=== PATIENT | male | born 1990 | race Caucasian/White ===

== ENCOUNTER 2023-06-06 14:43 | Observation (INO) ==
[2023-06-06 14:53] VITALS: BMI 34.0
--- NOTE | 2023-06-06 15:15 | DR.ABDMALE ---
HPI Time seen Time Seen by Provider: 06/06/23 15:15 PCP Primary Care Physician: [email or web address] Complaint Chief Complaint Doctors Comments: 33 y/o male presents for evaluation. Having upper abdominal pain over the past 2 weeks, was off and on, now steadily worsen ing. Located in the epigastric region, sharp and burning. Does not radiate. Worsens with drinking and eating. Has had some nausea with vomiting. Currently constipated for the past few days.. States his stools have been black at times.. Decreased p.o. intake. Denies taking a lot of aspirin products, [id number] nonsteroidals. Does not drink alcohol. Chief Complaint:: Pt c/o stomach pain, vomitting, can't sleep, "constantly hurting and burning", can't eat, can't sleep, anything he tries to drink stanley his stomach, indicates pain is epigastric and radiates to right. States his last BM was 3-4 days ago and he usually goes daily denies diarrhea presently, but did have a couple episodes a couple weeks ago. Denies urinary issues Self Treatment fo Chief Complaint: omeprazole "was working" but not helping anymore, radha, edwars COVID-19 Coronavirus risk:travel/contact w/high risk person: No Has patient experienced Coronavirus symptoms: No Source History provided by:: PATIENT Mode of arrival Mode of Arrival: Ambulatory Timing Onset of Chief Complaint: 05/23/23 PMH PMH Past Medical History: No Past Surgical History: No Surgical History: No History Family History History of Family Medical Conditions: Yes Family Medical History: [place] Social History Does patient currently use any type of tobacco product: Yes Have you used tobacco products in the last 12 months: Yes Type of Tobacco Use: Cigarettes Does any household member use tobacco: No Alcohol Use: Occasionally Do you use any recreational Drugs:: No Lives With: Spouse and Family Lives Where: Home Travel Risk Coronavirus risk:travel/contact w/high risk person: No Has patient experienced Coronavirus symptoms: No Infectious screening In the last 2 months have you had wt loss of >10#?: NO Have you had fever, night sweats or hemotysis?: No Have you traveled outside the country in the last 6 months?: No Isolation: Standard ROS Review of Systems Constitutional: Loss of Appetite Eyes: No Symptoms Reported ENTM: No Symptoms Reported Respiratoy: No Symptoms Reported Cardiovascular: No Symptoms Reported Gastrointestinal/Abdominal: See HPI Genitourinary: No Symptoms Reported Neurological: No Symptoms Reported Musculoskeletal: No Symptoms Reported Integumentary: No Symptoms Reported All Other Systems: Reviewed and Negative PE Vital Signs Vital Signs: Temp Pulse Resp BP Pulse Ox O2 Del Method 06/06/23 16:42 20 06/06/23 17:58 20 06/06/23 15:42 18 06/06/23 14:44 98.2 F 89 18 148/104 98 Room Air General General Appearance: Alert and In No Apparent Distress Eyes Eye exam: PERRL and EOMI ENT ENT Exam: Normal Oropharynx and Mucous Membranes Moist Neck Neck Exam: Normal Inspection and Full ROM Respiratory Respiratory Exam: Normal Lung Sounds Bilat; negative Accessory Muscle Use or Respiratory Distress Cardiovascular Cardiovascular Exam: Regular Rate, Normal Rhythm and Normal Heart Sounds Abdominal Exam Abdominal Exam: Normal Bowel Sounds, Soft and Tenderness (epigastric, RUQ/LUQ, no Alfonso's) Back Back Exam: Normal Inspection; negative (R) CVA Tenderness or (L) CVA Tenderness Extremeties Extremities Exam: Normal Inspection and Full ROM; negative Edema Neurologic Neurological Exam: Alert, Oriented X3 and CN II-XII Intact; negative Motor Sensory Deficit Skin Skin Exam: Warm and Dry COURSE Treatment Treatment: 33 y/o male with worsening epigastric pain over the past 2 weeks. Clinically with gastritis, PUD. W/u initiated. Pt given IV fluids, IV Protonix/Zofran. Given p.o. GI cocktail. 1744 - helped for a bit, pain/nausea returning. Given PO carafate, IV morphine/zofran. 1840 - no help, still with pain. Will admit for IV fluids, pain control, keep NPO after MN, and plan on EGD in AM. Discussed with Dr Portillo, accepts the admission. ROR Labs Reviewed Laboratory Results Reviewed?: Yes 06/06/23 15:37 06/06/23 15:37 Laboratory: WBC 9.2 X10^3/uL (3.6-10.0) 06/06/23 15:37 RBC 5.65 X10^6/uL (4.7-6.0) 06/06/23 15:37 Hgb 15.2 g/dL (13.5-18.0) 06/06/23 15:37 Hct 46.0 % (42.0-54.0) 06/06/23 15:37 MCV 81.4 fL (80.0-100.0) 06/06/23 15:37 MCH 26.9 pg (27.0-34.0) L 06/06/23 15:37 MCHC 33.0 g/dL (33.0-35.0) 06/06/23 15:37 RDW 13.5 % (11.6-16.5) 06/06/23 15:37 Plt Count 233 X10^3/uL (150.0-450.0) 06/06/23 15:37 MPV 10.4 fL (7.4-11.0) 06/06/23 15:37 Neut % (Auto) 62.3 % (42.0-75.0) 06/06/23 15:37 Lymph % (Auto) 25.2 % (21.0-51.0) 06/06/23 15:37 [place] % (Auto) 3.8 % (0.0-13.0) 06/06/23 15:37 Eos % (Auto) 8.2 % (0.9-2.9) H 06/06/23 15:37 Baso % (Auto) 0.5 % (0.2-1.0) 06/06/23 15:37 Neut # (Auto) 5.8 x10^3/uL (2.2-4.8) H 06/06/23 15:37 Lymph # (Auto) 2.3 X10^3/uL (1.3-2.9) 06/06/23 15:37 [place] # (Auto) 0.3 x10^3/uL (0.3-0.8) 06/06/23 15:37 Eos # (Auto) 0.8 x10^3/uL (0.0-0.2) H 06/06/23 15:37 Baso # (Auto) 0.0 X10^3/uL (0.0-0.1) 06/06/23 15:37 Absolute Nucleated RBC 0.1 /100WBC 06/06/23 15:37 Sodium 137 mmol/L (136-145) 06/06/23 15:37 Corrected Sodium 138 mmol/L (136-145) 06/06/23 15:37 Potassium 3.3 mmol/L (3.5-5.1) L 06/06/23 15:37 Chloride 101 mmol/L (98-107) 06/06/23 15:37 Carbon Dioxide 27.1 mmol/L (21-32) 06/06/23 15:37 BUN 9 mg/dL (7-18) 06/06/23 15:37 Creatinine 0.96 mg/dL (0.70-1.30) 06/06/23 15:37 Est GFR (MDRD) Af Amer > 60 (>60) 06/06/23 15:37 Est GFR (MDRD) Non-Af > 60 (>60) 06/06/23 15:37 Glucose 138 mg/dL (65-99) H 06/06/23 15:37 Calcium 9.2 mg/dL (8.5-10.1) 06/06/23 15:37 Corrected Calcium TNP 06/06/23 15:37 Total Bilirubin 0.40 mg/dL (0.2-1.0) 06/06/23 15:37 AST 17 Units/L (15-37) 06/06/23 15:37 ALT 28 Units/L (12-78) 06/06/23 15:37 Alkaline Phosphatase 87 Units/L (46-116) 06/06/23 15:37 Total Protein 7.9 g/dL (6.4-8.2) 06/06/23 15:37 Albumin 4.0 g/dL (3.4-5.0) 06/06/23 15:37 Globulin 3.9 g/dL (2.5-4.5) 06/06/23 15:37 Albumin/Globulin Ratio 1.0 Ratio (1.1-2.1) L 06/06/23 15:37 Lipase 71 Units/L (16-77) 06/06/23 15:37 Specimen Type Clean catch urine 06/06/23 15:46 Urine Color Siri (YELLOW) 06/06/23 15:46 Urine Appearance Mucoid (CLEAR) 06/06/23 15:46 Urine pH 6.0 (5.0 - 8.0) 06/06/23 15:46 Ur Specific [place] 1.030 (1.000-1.030) 06/06/23 15:46 Urine Protein 2+ (NEGATIVE) 06/06/23 15:46 Urine Glucose (UA) Negative (NEGATIVE) 06/06/23 15:46 Urine Ketones 2+ (NEGATIVE) 06/06/23 15:46 Urine Blood 1+ (NEGATIVE) 06/06/23 15:46 Urine Nitrite Negative (NEGATIVE) 06/06/23 15:46 Urine Bilirubin 1+ (NEGATIVE) 06/06/23 15:46 Urine Urobilinogen Normal (NORMAL) 06/06/23 15:46 Ur Leukocyte Esterase Negative (NEGATIVE) 06/06/23 15:46 Urine RBC 0-2 /HPF (0-3) 06/06/23 15:46 Urine WBC None seen /HPF (0-5) 06/06/23 15:46 Ur Squamous Epith Cells Rare /HPF (NEGATIVE) 06/06/23 15:46 Urine Bacteria Trace /HPF (NEGATIVE) 06/06/23 15:46 Urine Mucus Many /HPF (NEGATIVE) 06/06/23 15:46 Ur Culture Indicated? No/not indicated 06/06/23 15:46 Labs acceptable Opioid Opioid Risk Tool Age (Leon box if 16-45): Yes History of Preadolescent Sexual Abuse: No Total: 1 Total Score Risk Category: Low Risk Copyright: Marcos MAYES predicting aberrant behaviors Discharge Plan Diagnosis Discharge Problem: Acute upper abdominal pain Discharge Plan Patient Disposition: 09 ADMITTED INPATIENT Condition: Stable Orders to Discharge Patient Discharge Orders: Transfer (Routine); Ordered 06/06/23 Ordered By: Mohan Suarez
[2023-06-06] MEDS ORDERED: PROTONIX INJ 40 MG VIAL IVP ONE (15:19)
[2023-06-06] MEDS ORDERED: ZOFRAN INJ 4 MG VIAL IVP ONE ×2 (15:19→17:48)
[2023-06-06] MEDS ORDERED: LEVSIN/MAALOX/LIDOC VISC PO ONE (15:19)
[2023-06-06] MEDS ORDERED: NS 1,000 ML IV 1,000 ML IV ONE (15:19)
[2023-06-06] MEDS ORDERED: ZOFRAN INJ 4 MG VIAL ONE ×2 (15:26→17:54)
[2023-06-06] MEDS ORDERED: LEVSIN/MAALOX/LIDOC VISC ONE (15:26)
[2023-06-06] MEDS ORDERED: NS 1,000 ML IV 1,000 ML ONE (15:26)
[2023-06-06] MEDS ORDERED: PROTONIX INJ 40 MG VIAL ONE (15:26)
[2023-06-06 15:42] LABS: BASOPHILS % (AUTO) 0.5 % (0.2-1.0); EOSINOPHILS # (AUTO) 0.8 x10^3/uL (0.0-0.2); EOSINOPHILS % (AUTO) 8.2 % (0.9-2.9); HEMOGLOBIN 15.2 g/dL (13.5-18.0); LYMPHOCYTES # (AUTO) 2.3 X10^3/uL (1.3-2.9); LYMPHOCYTES % (AUTO) 25.2 % (21.0-51.0); MEAN CORPUSCULAR HEMOGLOBIN 26.9 pg (27.0-34.0); MEAN CORPUSCULAR VOLUME 81.4 fL (80.0-100.0); MEAN PLATELET VOLUME 10.4 fL (7.4-11.0); MONOCYTES # (AUTO) 0.3 x10^3/uL (0.3-0.8); MONOCYTES % (AUTO) 3.8 % (0.0-13.0); NEUTROPHILS # (AUTO) 5.8 x10^3/uL (2.2-4.8); NEUTROPHILS % (AUTO) 62.3 % (42.0-75.0); PLATELET COUNT 233 X10^3/uL (150.0-450.0); RED BLOOD COUNT 5.65 X10^6/uL (4.7-6.0); RED CELL DISTRIBUTION WIDTH 13.5 % (11.6-16.5); WHITE BLOOD COUNT 9.2 X10^3/uL (3.6-10.0)
[2023-06-06 15:55] LABS: ALANINE AMINOTRANSFERASE 28 Units/L (12-78); ALKALINE PHOSPHATASE 87 Units/L (46-116); ASPARTATE AMINO TRANSFERASE 17 Units/L (15-37); BLOOD UREA NITROGEN 9 mg/dL (7-18); CALCIUM 9.2 mg/dL (8.5-10.1); CARBON DIOXIDE 27.1 mmol/L (21-32); CHLORIDE 101 mmol/L (98-107); COR NA(FOR HYPERGLY) 138 mmol/L (136-145); CREATININE 0.96 mg/dL (0.70-1.30); GLUCOSE 138 mg/dL (65-99); LIPASE 71 Units/L (16-77); POTASSIUM 3.3 mmol/L (3.5-5.1); SODIUM 137 mmol/L (136-145); TOTAL PROTEIN 7.9 g/dL (6.4-8.2); eGFR NON BLACK RACES > 60 (>60)
[2023-06-06 15:57] LABS: BILIRUBIN,URINE 1+ (NEGATIVE); BLOOD/HEMOGLOBIN,URINE 1+ (NEGATIVE); GLUCOSE, URINE NEGATIVE (NEGATIVE); KETONES,URINE 2+ (NEGATIVE); LEUKOCYTE ESTERASE ,URINE NEGATIVE (NEGATIVE); NITRITES,URINE NEGATIVE (NEGATIVE); PROTEIN,URINE 2+ (NEGATIVE); UROBILINOGEN,URINE NORMAL (NORMAL)
[2023-06-06 16:07] LABS: APPEARANCE,URINE MUCOID (CLEAR); COLOR,URINE AMBER (YELLOW)
[2023-06-06 16:09] LABS: BACTERIA,URINE TRACE /HPF (NEGATIVE); RBC,URINE 0-2 /HPF (0-3); SQUAMOUS EPITHELIAL CELL,UR RARE /HPF (NEGATIVE)
[2023-06-06] MEDS ORDERED: MORPHINE SULFATE INJ 4 MG IVP ONE (17:49)
[2023-06-06] MEDS ORDERED: CARAFATE PO ONE (17:49)
[2023-06-06] MEDS ORDERED: CARAFATE ONE (17:53)
[2023-06-06] MEDS ORDERED: MORPHINE SULFATE INJ 4 MG ONE (17:54)
[2023-06-06] MEDS: D5 1/2 NS 1,000 ML 1,000 ML IV SCH (20:48)
[2023-06-06] MEDS ORDERED: CATAPRES TAB 0.1 MG PO ONE (20:48)
--- NOTE | 2023-06-06 21:03 | EKG ---
Test Reason : HTN PROTOCOL Blood Pressure : */* mmHG Vent. Rate : 61 BPM Atrial Rate : 61 BPM P-R Int : 160 ms QRS Dur : 90 ms QT Int : 412 ms P-R-T Axes : 41 6 14 degrees QTc Int : 414 ms Normal sinus rhythm Minimal voltage criteria for LVH, may be normal variant ( R in aVL ) Borderline ECG When compared with ECG of 18-FEB-2023 22:22, Vent. rate has decreased BY 52 BPM Confirmed by Salvador Pavon ([id number]) on 06/07/2023 9:32:48 AM Referred By: Confirmed By: Salvador Pavon
[2023-06-06] MEDS: MORPHINE SULFATE INJ 4 MG IVP PRN (22:42)
[2023-06-06] MEDS: ZOFRAN INJ 4 MG VIAL IVP PRN (22:42)
[2023-06-06] MEDS ORDERED: APRESOLINE INJ 20 MG VIAL IVP ONE (23:02)
[2023-06-07] MEDS ORDERED: APRESOLINE INJ 20 MG VIAL ONE (00:01)
[2023-06-07] MEDS ORDERED: HIBICLENS WASH EXT ONE (03:29)
[2023-06-07] MEDS: MORPHINE SULFATE INJ 4 MG IVP PRN ×5 (04:17→22:19)
[2023-06-07] MEDS: ZOFRAN INJ 4 MG VIAL IVP PRN ×4 (04:17→23:41)
[2023-06-07] MEDS: D5 1/2 NS 1,000 ML 1,000 ML IV SCH ×4 (04:17→23:44)
[2023-06-07 05:34] LABS: BASOPHILS % (AUTO) 0.4 % (0.2-1.0); EOSINOPHILS # (AUTO) 1.3 x10^3/uL (0.0-0.2); EOSINOPHILS % (AUTO) 15.4 % (0.9-2.9); HEMATOCRIT 40.4 % (42.0-54.0); HEMOGLOBIN 13.2 g/dL (13.5-18.0); LYMPHOCYTES % (AUTO) 33.8 % (21.0-51.0); MEAN CORPUSCULAR HEMOGLOBIN 26.7 pg (27.0-34.0); MEAN CORPUSCULAR HGB CONC 32.6 g/dL (33.0-35.0); MEAN CORPUSCULAR VOLUME 81.9 fL (80.0-100.0); MEAN PLATELET VOLUME 11.2 fL (7.4-11.0); MONOCYTES # (AUTO) 0.5 x10^3/uL (0.3-0.8); MONOCYTES % (AUTO) 5.9 % (0.0-13.0); NEUTROPHILS # (AUTO) 3.9 x10^3/uL (2.2-4.8); NEUTROPHILS % (AUTO) 44.5 % (42.0-75.0); PLATELET COUNT 212 X10^3/uL (150.0-450.0); RED BLOOD COUNT 4.93 X10^6/uL (4.7-6.0); RED CELL DISTRIBUTION WIDTH 13.2 % (11.6-16.5); WHITE BLOOD COUNT 8.8 X10^3/uL (3.6-10.0)
[2023-06-07 05:47] LABS: ALANINE AMINOTRANSFERASE 22 Units/L (12-78); ALBUMIN 3.2 g/dL (3.4-5.0); ALKALINE PHOSPHATASE 68 Units/L (46-116); ASPARTATE AMINO TRANSFERASE 14 Units/L (15-37); BLOOD UREA NITROGEN 9 mg/dL (7-18); CALCIUM 8.3 mg/dL (8.5-10.1); CHLORIDE 103 mmol/L (98-107); COR CA(FOR HYPOALB) 8.9 mg/dL (8.5-10.1); CREATININE 1.02 mg/dL (0.70-1.30); GLUCOSE 108 mg/dL (65-99); POTASSIUM 3.2 mmol/L (3.5-5.1); SODIUM 139 mmol/L (136-145); TOTAL PROTEIN 6.4 g/dL (6.4-8.2); eGFR NON BLACK RACES > 60 (>60)
[2023-06-07] MEDS ORDERED: CONSULT PHARMACY - POTASSIUM & MAGNESIUM XX SCH (07:00)
[2023-06-07] MEDS ORDERED: POTASSIUM CHL 40 MEQ/NS 0.45% 500 ML 40 MEQ/500 ML BAG IV ONE (08:00)
[2023-06-07] MEDS: MAGNESIUM SULFATE 1 GRAM/100 mL PREMIX 1 G/100 ML BAG IV SCH ×2 (08:12→09:41)
[2023-06-07] MEDS ORDERED: PROTONIX INJ 40 MG VIAL IVP SCH (09:00)
[2023-06-07] MEDS ORDERED: MAG-OX TAB PO SCH (09:00)
[2023-06-07] MEDS ORDERED: K-DUR TAB 20 MEQ PO SCH (09:00)
[2023-06-07] MEDS ORDERED: LR 1,000 ML IV 1,000 ML IV ONE (10:13)
--- NOTE | 2023-06-07 10:33 | US ---
EXAM:GALL BLADDERHISTORY:ABD PAIN ;COMPARISON:None available.TECHNIQUE:Multiple rossi scale and color flow Doppler images of the abdomen were obtained.FINDINGS:Overall study is limited by overlying bowel gas. The liver shows increased echotexture. No visible focal hepatic lesion. No intrahepatic bile duct dilatation. No gallstones.No pericholecystic fluid or gallbladder wall thickening. The technologist did not report a positive sonographic Alfonso's sign. The common bile duct measures 6 mm.The right kidney measures 11.4 cm cm. No visible hydronephrosis or mass. Pancreas obscured.IMPRESSION:1. Evidence of hepatic steatosis. Unremarkable gallbladder.THIS IS AN ELECTRONICALLY VERIFIED FINAL [id number]/07/2023 10:30 AM - Electronically signed by Isac Garcia MD
[2023-06-07] MEDS ORDERED: DIPRIVAN VIAL 20 ML ONE (11:04)
[2023-06-07] MEDS ORDERED: ZOFRAN INJ 4 MG VIAL IVP ONE (11:28)
[2023-06-07] MEDS: CARAFATE PO SCH ×2 (13:53→21:10)
[2023-06-07] MEDS ORDERED: TORADOL TAB PO PRN (14:11)
[2023-06-07] MEDS: PROTONIX INJ 40 MG VIAL IVP SCH (20:13)
[2023-06-08 00:48] VITALS: O2SAT 99
[2023-06-08] MEDS: MORPHINE SULFATE INJ 4 MG IVP PRN (02:35)
[2023-06-08] MEDS: D5 1/2 NS 1,000 ML 1,000 ML IV SCH ×2 (05:06→12:14)
[2023-06-08] MEDS: CARAFATE PO SCH (05:06)
[2023-06-08 06:41] LABS: BASOPHILS % (AUTO) 0.5 % (0.2-1.0); EOSINOPHILS # (AUTO) 1.3 x10^3/uL (0.0-0.2); EOSINOPHILS % (AUTO) 17.8 % (0.9-2.9); HEMATOCRIT 40.3 % (42.0-54.0); HEMOGLOBIN 13.2 g/dL (13.5-18.0); LYMPHOCYTES # (AUTO) 2.8 X10^3/uL (1.3-2.9); LYMPHOCYTES % (AUTO) 38.4 % (21.0-51.0); MEAN CORPUSCULAR HEMOGLOBIN 26.9 pg (27.0-34.0); MEAN CORPUSCULAR HGB CONC 32.7 g/dL (33.0-35.0); MEAN CORPUSCULAR VOLUME 82.3 fL (80.0-100.0); MEAN PLATELET VOLUME 10.7 fL (7.4-11.0); MONOCYTES # (AUTO) 0.4 x10^3/uL (0.3-0.8); NEUTROPHILS # (AUTO) 2.8 x10^3/uL (2.2-4.8); NEUTROPHILS % (AUTO) 38.3 % (42.0-75.0); PLATELET COUNT 175 X10^3/uL (150.0-450.0); RED CELL DISTRIBUTION WIDTH 13.4 % (11.6-16.5); WHITE BLOOD COUNT 7.3 X10^3/uL (3.6-10.0)
[2023-06-08 06:52] LABS: ALANINE AMINOTRANSFERASE 22 Units/L (12-78); ALBUMIN 3.3 g/dL (3.4-5.0); ALKALINE PHOSPHATASE 69 Units/L (46-116); ASPARTATE AMINO TRANSFERASE 18 Units/L (15-37); BLOOD UREA NITROGEN 6 mg/dL (7-18); CALCIUM 8.6 mg/dL (8.5-10.1); CARBON DIOXIDE 29.3 mmol/L (21-32); CHLORIDE 105 mmol/L (98-107); COR CA(FOR HYPOALB) 9.2 mg/dL (8.5-10.1); CREATININE 0.97 mg/dL (0.70-1.30); GLUCOSE 109 mg/dL (65-99); POTASSIUM 3.9 mmol/L (3.5-5.1); SODIUM 139 mmol/L (136-145); TOTAL PROTEIN 6.4 g/dL (6.4-8.2); eGFR NON BLACK RACES > 60 (>60)
[2023-06-08] MEDS: PROTONIX INJ 40 MG VIAL IVP SCH (10:06)
[2023-06-08] MEDS: ZOFRAN INJ 4 MG VIAL IVP PRN (10:30)
--- NOTE | 2023-06-08 13:07 | NM ---
EXAM:HIDA/HEPATOBILIARY SCAN W/EFHISTORY:Pt states he has RUQ pain and burning, n/vCT -showed no gb stones; 6.4mCi Choletec in R acGBEf calculated utilizing 8 oz EnsureCOMPARISON:Gallbladder ultrasound 06/07/2023TECHNIQUE:6.4 mCi Tc-99m mebrofenin were injected intravenously. Planar images were obtained for 90 minutes.FINDINGS:There was prompt uptake and excretion by the liver. Activity is seen in the gallbladder by 10 minutes with no evidence of cystic duct obstruction. Activity is seen in the small bowel at 65 minutes with no evidence of common bile duct obstruction.At 60 minutes, the technologist gave the patient a fatty meal. Gallbladder ejection fraction was calculated at 8%. Normal gallbladder ejection fraction is greater than 35%. Low gallbladder ejection fraction can be seen with gallbladder dysfunction or biliary dyskinesia.IMPRESSION:1. Findings suggesting gallbladder dysfunctionTHIS IS AN ELECTRONICALLY VERIFIED FINAL [id number]/08/2023 1:03 PM - Electronically signed by Franklin Lancaster MD
[2023-06-08 13:26] VITALS: BP 130/75; PULSE 109; RESP 20; TEMP 98.1
== END 2023-06-08 13:10 | disposition home or self-care (01) ==
LOC: ER 14:43 → ICU 14:43 → MED/SURG 06-07 14:40
PROVIDERS: ADMIT Surgery; ATTEND Surgery